=== PATIENT | male | born 1955 | race Caucasian/White ===

== ENCOUNTER → 2019-01-01 | Outpatient (CLI) | payer OTHER ==
--- NOTE | 2019-01-01 16:08 | PCVCIMAG ---
APPROVED REPORT Study performed: 01/01/2019 14:54:13 EXAM: Comprehensive 2D, Doppler, and color-flow Echocardiogram Patient Location: Echo lab Room #: 2Status: routine BSA: 2.22 HR: 62 bpmBP: 170/84 mmHg Rhythm: NSR Other Information Study Quality: Good Risk Factors: Cardiac Risk Factors: HTN, Smoking Indications Abnormal ECG Hypertension/HDD 2D Dimensions IVSd: 10.85 (7-11mm)LVOT Diam: 20.45 (18-24mm) LVDd: 48.05 mm PWd: 10.48 (7-11mm)Ascending Ao: 29.85 (22-36mm) LVDs: 31.94 (25-40mm) Left Atrium: 38.89 (27-40mm) Aortic Root: 21.86 mm LV Single Plane 4CH: 64.14 % LV Single Plane 2CH: 71.78 % Biplane EF: 67.5 % Volumes Left Atrial Volume (Systole) Single Plane 4CH: 73.11 mLSingle Plane 2CH: 68.53 mL Biplane LA Volume: 73.00 mLLA ESV Index: 33.00 mL/m2 Aortic Valve AoV Peak Michele.: 2.75 m/s AO Peak Gr.: 28.35 mmHgLVOT Max P.44 mmHg AO Mean Gr.: 16.28 mmHgLVOT Mean P.89 mmHg AO V2 Mean: 1.92 m/sLVOT Max V: 0.95 m/s AO V2 VTI: 59.07 cmLVOT Mean V: 0.63 m/s VIJAYA (VTI): 1.20 [id number] V1 VTI: 21.65 cm VIJAYA Vmax: 1.30 cm2 SV (LVOT): 71.05 mL Mitral Valve E/A Ratio: 1.1 MV Decel. Time: 168.43 ms MV E Max Michele.: 0.62 m/s MV A Michele.: 0.56 m/s IVRT: 96.89 ms TDI E/Medial E': 7.75 Medial E' Michele.: 0.08 m/s Pulmonary Valve PV Peak Michele.: 0.94 m/sPV Peak Gr.: 3.53 mmHg Tricuspid Valve TR Peak Michele.: 1.67 m/s TR Peak Gr.: 11.12 mmHg TV Vmax: 0.69 m/sPA Pressure: 18.00 mmHg Left Ventricle The left ventricle is normal size. There is normal LV segmental wall motion. Borderline concentric left ventricular hypertrophy. Left ventricular systolic function is normal. The left ventricular ejection fraction is within the normal range. LVEF is 65-70%. The left ventricular diastolic function is normal. Right Ventricle The right ventricle is normal size. The right ventricular systolic function is normal. Atria The left atrium size is normal. The right atrium size is normal. Aortic Valve Aortic valve is trileaflet, mildly calcified. No aortic regurgitation is present. Moderate aortic stenosis. Calculated aortic valve area is 1.3 cm2 with maximum pressure gradient of 30 mmHg and mean pressure gradient of 16 mmHg. Mitral Valve The mitral valve is normal in structure. Trace mitral regurgitation. No evidence of mitral valve stenosis. Tricuspid Valve The tricuspid valve is normal in structure. Trace tricuspid regurgitation. No pulmonary hypertension. Pulmonic Valve The pulmonary valve is normal in structure. There is no pulmonic valvular regurgitation. Great Vessels The aortic root is normal in size. The ascending aorta is normal in size. IVC is normal in size and collapses >50% with inspiration. Pericardium There is no pericardial effusion. There is no pleural effusion. <Conclusion> Left ventricular systolic function is normal. There is normal LV segmental wall motion. Borderline concentric left ventricular hypertrophy. Aortic valve is trileaflet, mildly calcified. Mild aortic stenosis, no insufficiency. Calculated aortic valve area is 1.3 cm2 with maximum pressure gradient of 30 mmHg and mean pressure gradient of 16 mmHg. The mitral valve is normal in structure. Trace mitral regurgitation Pulmonary artery pressure could not be reliably ascertained. There is no pericardial effusion.
== END | disposition home or self-care (01) ==
LOC: PCVCIMAG 15:00
PROVIDERS: ATTEND Internal Medicine
DX: I35.0 Nonrheumatic aortic (valve) stenosis (principal); R94.31 Abnormal electrocardiogram [ECG] [EKG]; I10 Essential (primary) hypertension; E78.5 Hyperlipidemia, unspecified; F17.200 Nicotine dependence, unspecified, uncomplicated
CPT/HCPCS: 93306